=== PATIENT | female | born 1940 | race Caucasian/White ===

== ENCOUNTER 2019-03-04 07:43 | Outpatient (CLI) | payer MEDICARE, OTHER ==
[~2019-03-04] VITALS: Ht 154.9 cm; Wt 68.4 kg
== END 2019-03-04 23:59 | disposition home or self-care (01) ==
LOC: INFUSION 07:43
PROVIDERS: ATTEND Physician Assistant Medical
DX: M81.0 Age-related osteoporosis without current pathological fracture (principal); N95.1 Menopausal and female climacteric states; E03.9 Hypothyroidism, unspecified
CPT/HCPCS: 36415; 82310; 82565; 96372; J0897

== ENCOUNTER 2019-09-09 10:29 | Outpatient (CLI) | payer MEDICARE, OTHER ==
[~2019-09-09] VITALS: Ht 153.7 cm; Wt 68.6 kg
[2019-09-09 09:33] VITALS: BP 136/73
[2019-09-09 10:18] LABS: CALCIUM 9.1 mg/dL (8.5-10.1); CREATININE 0.82 mg/dL (0.55-1.02)
[~2019-09-09 10:29] MED LIST: CALC200T3 PO; CHOL-29 PO; LEVO50TA PO; OMEG1CAP23 PO; SIMV40TA20 PO; VIT1CAPS9 PO
[2019-09-09] MEDS ORDERED: DENOSUMAB 60 MG/ML SQ ONE (11:00)
== END 2019-09-09 23:59 | disposition home or self-care (01) ==
LOC: INFUSION 10:29
PROVIDERS: ATTEND Family Medicine
DX: M81.0 Age-related osteoporosis without current pathological fracture (principal); E03.9 Hypothyroidism, unspecified
CPT/HCPCS: 36415; 82310; 82565; 96372; J0897

== ENCOUNTER 2021-04-05 14:01 | Outpatient (CLI) | payer MEDICARE, OTHER ==
[2021-04-05 14:35] LABS: ALANINE AMINOTRANSFERASE 22 U/L (12-78); ALBUMIN 3.1 g/dL (3.4-5.0); ANION GAP 6 mmol/L (5-15); CALCIUM 8.7 mg/dL (8.5-10.1); CHLORIDE 106 mmol/L (98-107); CREATININE 0.73 mg/dL (0.55-1.02)
[2021-04-05 14:37] LABS: ALKALINE PHOSPHATASE 83 U/L (45-117); BILIRUBIN,TOTAL 0.5 mg/dL (0.2-1.0); TOTAL PROTEIN 7.5 g/dL (6.4-8.2)
== END 2021-04-05 23:59 | disposition home or self-care (01) ==
LOC: LAB 14:01
PROVIDERS: ATTEND Internal Medicine
DX: M81.0 Age-related osteoporosis without current pathological fracture (principal)
CPT/HCPCS: 36415; 80053